=== PATIENT | female | born 1995 | race American Indian/Alaskan Native ===

== ENCOUNTER 2019-03-06 11:22 | Emergency (ER) | payer OTHER ==
[2019-03-06 11:38] VITALS: BP 137/94
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
[2019-03-06] MEDS ORDERED: NORCO 5/325 PO ONE (12:53)
[2019-03-06] MEDS ORDERED: FLEXERIL PO ONE (12:53)
[2019-03-06] MEDS ORDERED: IBUPROFEN PO ONE (12:53)
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
[2019-03-06] MEDS ORDERED: TORADOL IM ONE (14:26)
[2019-03-06] MEDS ORDERED: TORADOL IV ONE (14:30)
== END 2019-03-06 15:22 | disposition home or self-care (01) ==
LOC: ED 11:22
DX: S43.101A Unspecified dislocation of right acromioclavicular joint, initial encounter (principal); R07.89 Other chest pain; M54.9 Dorsalgia, unspecified; F17.200 Nicotine dependence, unspecified, uncomplicated; Z79.899 Other long term (current) drug therapy; Z88.8 Allergy status to other drugs, medicaments and biological substances; V49.40XA Driver injured in collision with unspecified motor vehicles in traffic accident, initial encounter; Y93.89 Activity, other specified; Y92.410 Unspecified street and highway as the place of occurrence of the external cause; Y99.8 Other external cause status
CPT/HCPCS: 36415; 71046; 73030; 84703; 93005; 93010; 96374; 99285; J1885